=== PATIENT | female | born 1965 | race Caucasian/White ===

== ENCOUNTER 2017-09-27 20:49 | Emergency (ER) | payer OTHER ==
[~2017-09-27] VITALS: Ht 160 cm; Wt 66.0 kg
[~2017-09-27 20:49] MED LIST: CYCL10 PO; NAPR-58 PO
[2017-09-27 21:10] VITALS: BP 148/93
[2017-09-27] MEDS ORDERED: DEXAMETHASONE SOD PHOS 4 MG/ML 5 ML VIAL IM ONE (21:30)
[2017-09-27] MEDS ORDERED: DiphenhydrAMINE HCL 50 MG CAPSULE PO ONE (21:30)
[2017-09-27] MEDS ORDERED: FAMOTIDINE 20 MG TABLET PO ONE (21:30)
== END 2017-09-27 21:49 | disposition home or self-care (01) ==
LOC: EMS 20:49
DX: L50.0 Allergic urticaria (principal)
CPT/HCPCS: 96372; 99283; J1100